=== PATIENT | male | born 1985 | race Caucasian/White ===

== ENCOUNTER 2021-10-14 11:35 | Emergency (ER) | payer BC, OTHER ==
[~2021-10-14] VITALS: Ht 177.8 cm; Wt 152.5 kg
[2021-10-14] MEDS ORDERED: VYVA40CA3 (11:48)
[2021-10-14] MEDS ORDERED: METOPROLOL TART 25 MG TABLET PO ONE (15:40)
[2021-10-14 16:09] VITALS: O2SAT 93
--- NOTE | 2021-10-14 16:33 | REP ---
INDICATION: covid, cough COMPARISON: None. TECHNIQUE: Portable AP view of the chest FINDINGS: Diffuse bilateral opacities consistent with the given history of COVID-19 pulmonary disease. No obvious effusion. No pneumothorax. Cardiac silhouette within normal limits for portable technique. IMPRESSION: Diffuse opacities consistent with COVID-19 pulmonary disease. <Electronically signed by Gautam Wong > 10/14/21 [id number]
[2021-10-14 16:41] VITALS: BP 120/57
[2021-10-14 16:42] VITALS: BP 120/57
--- NOTE | 2021-10-14 16:57 | IPNPDOC ---
Date Seen The patient was seen on 10/14/21. Progress Note SUBJECTIVE: 36-year-old male with morbid obesity BMI 48.2 complaining of fever chills shortness of breath cough loss of taste loss of smell that started Tuesday evening when he felt that something was "wrong", with malaise on Tuesday passing out at home and sleeping 5 to 6 hours patient had a documented fever 103 for which she took some Tylenol and ibuprofen dry cough shortness of breath occurred today patient has had no appetite he did a home Covid test on 10/10/21 which was positive. Patient presents to emergency room for monoclonal antibodies. With ambulation patient was saturating 99% on room air. OBJECTIVE PHYSICAL EXAMINATION: VITAL SIGNS: Please see below. GENERAL: Awake alert oriented x3 no respiratory distress HEENT: Conjunctival injection in the left eye, extract muscles intact no JVD thyromegaly stridor No carotid bruit CARDIOVASCULAR: S1-S2 sinus tachycardia no S3 RESPIRATORY: Clear to auscultation air entry is equal ABDOMINAL: Obese soft nontender nondistended positive bowel sounds EXTREMITIES: No cyanosis clubbing or pitting edema LABORATORY DATA, IMAGING STUDIES, MICROBIOLOGY: Please see below. ASSESSMENT AND PLAN: 36-year-old male with morbid obesity BMI 48.2 presents with cough cold fever chills shortness of breath saturating 99% on room air tested positive on 10/10/21 using a home Covid test. Coronavirus positive -Patient is not hypoxic. He will be scheduled for monoclonal antibodies on 10/15/2021. Patient has signed a consent form. All questions have been answered. Check inflammatory markers and chest x-ray. Continue with droplet and contact isolation. If worsens patient may be admitted for inpatient IV remdesivir Decadron aspirin and Lovenox. Morbid obesity -Complicating care. VS, I&O, 24H, Fishbone Vital Signs/I&O Vital Signs Date Time Temp Pulse Resp B/P (MAP) Pulse Ox O2 Delivery O2 Flow Rate FiO2 10/14/21 16:42 83 120/57 10/14/21 16:41 98.6 20 99 Room Air JOHN PEREZ MD Oct 14, 2021 16:56
[2021-10-14 17:19] LABS: INR 0.99; PROTHROMBIN TIME 13.5 SECONDS (12.7-14.5)
[2021-10-14 17:21] LABS: PARTIAL THROMBOPLASTIN TIME 32.9 SECONDS (25.9-37.0)
[2021-10-14 17:23] LABS: D-DIMER QUANT 1017.92 ng/ml (<500)
[2021-10-14] MEDS ORDERED: ACETAMINOPHEN 500 MG TAB PO ONE (17:35)
[2021-10-14 18:00] LABS: ALBUMIN 3.7 GM/DL (3.2-5.2); BILIRUBIN,DIRECT 0.2 MG/DL (0.0-0.2); BILIRUBIN,TOTAL 0.4 MG/DL (0.2-1.0); C REACTIVE PROTEIN QUANTITATIV 7.96 MG/DL (0.00-0.30); TOTAL PROTEIN 7.4 GM/DL (6.4-8.2)
== END 2021-10-14 17:59 | disposition home or self-care (01) ==
LOC: M ED 11:35
DX: U07.1 COVID-19 (principal); F90.9 Attention-deficit hyperactivity disorder, unspecified type

== ENCOUNTER 2021-10-15 14:22 | Outpatient (CLI) | payer OTHER ==
[~2021-10-15] VITALS: Ht 180.3 cm; Wt 150.0 kg
[~2021-10-15 14:22] MED LIST: CASIRIVIMAB/IMDEVIMAB 1,200 MG in NS 250 ML IV ONE; VYVA40CA3
[2021-10-15 14:35] VITALS: BP 143/67
[2021-10-15] MEDS ORDERED: EPINEPHrine INJ 1 MG/ML 1ML AMP IM PRN (15:00)
[2021-10-15] MEDS ORDERED: ACETAMINOPHEN TAB 650MG DOSE (2X325MG) PO PRN (15:00)
[2021-10-15] MEDS ORDERED: methylPREDNISolone 125MG 2ML VIAL IV ONE (15:00)
[2021-10-15] MEDS ORDERED: diphenhydrAMINE 50MG/ML VIAL (J1200) IV PRN (15:00)
[2021-10-15] MEDS ORDERED: diphenhydrAMINE 50MG/ML VIAL (J1200) IV ONE (15:00)
[2021-10-15] MEDS ORDERED: ACETAMINOPHEN TAB 650MG DOSE (2X325MG) PO ONE (15:00)
[2021-10-15] MEDS ORDERED: ALBUTEROL 90 MCG/ACT 8GM HFA INHALER INH PRN (15:00)
[2021-10-15] MEDS ORDERED: NS 1,000 ML IV SCH (15:00)
[2021-10-15] MEDS ORDERED: CASIRIVIMAB/IMDEVIMAB 1,200 MG in NS 250 ML IV ONE (15:00)
[2021-10-15] MEDS ORDERED: methylPREDNISolone 125MG 2ML VIAL IV PRN (15:00)
[2021-10-15 15:05] VITALS: BP 143/67
[2021-10-15 15:35] VITALS: BP 111/63
[2021-10-15 16:12] VITALS: BP 109/56
[2021-10-15 17:18] VITALS: BP 112/66
[2021-10-16] MEDS ORDERED: methylPREDNISolone 40MG 1ML VIAL IV ONE (06:00)
== END 2021-10-15 17:25 | disposition home or self-care (01) ==
LOC: M OPCLI4 14:22
PROVIDERS: ATTEND General Practice
DX: U07.1 COVID-19 (principal)
CPT/HCPCS: 96375; J1200; J2930; M0243

== ENCOUNTER → 2021-10-21 | Outpatient (CLI) | payer OTHER ==
[~2021-10-21] MED LIST changes: -CASIRIVIMAB/IMDEVIMAB 1,200 MG in NS 250 ML IV ONE; +ISOVUE-370 76% 100ML VIAL ONE
--- NOTE | 2021-10-21 09:14 | REP ---
INDICATION: ELEVATED D DIMER,SOB COMPARISON: None. TECHNIQUE: CT angiography chest after the intravenous administration of 75 cc Isovue 370. FINDINGS: There is suboptimal visualization of the pulmonary arterial vasculature. This is secondary to injection timing. Small an even moderate-sized pulmonary emboli could be obscured. No 1st order pulmonary arterial filling defects are identified. There is no gross abnormality seen involving the thoracic aorta. There is no evidence of mediastinal or hilar adenopathy. There are no pleural or pericardial effusions. The imaged upper abdomen and imaged osseous structures are within normal limits. Evaluation of the lung rodríguez shows scattered patchy airspace opacities. IMPRESSION: 1. Suboptimal visualization of the pulmonary arteries, as described above with no evidence of a gross 1st order pulmonary embolus. Consider repeat exam and correlate clinically. 2. Lung field opacities consistent with the patient's known diagnosis of COVID-19. <Electronically signed by Austin Heath > 10/21/21 0996
== END ==
LOC: M PLAIMG 08:24
PROVIDERS: ATTEND Physician Assistant
DX: R79.89 Other specified abnormal findings of blood chemistry (principal); R91.8 Other nonspecific abnormal finding of lung field; U07.1 COVID-19; J12.82 Pneumonia due to coronavirus disease 2019
CPT/HCPCS: 71275; Q9967

== ENCOUNTER → 2022-05-17 | Outpatient (REF) | payer OTHER ==
[~2022-05-17] MED LIST changes: -ISOVUE-370 76% 100ML VIAL ONE
[2022-05-17 16:09] LABS: HEMATOCRIT 44.7 % (42.0-52.0); HEMOGLOBIN 15.1 g/dl (13.5-17.5); MEAN CORPUSCULAR HEMOGLOBIN 30.9 pg (27.0-33.0); MEAN CORPUSCULAR HGB CONC 33.8 g/dl (32.0-36.5); MEAN CORPUSCULAR VOLUME 91.6 fl (80.0-96.0); PLATELET COUNT, AUTOMATED 211 10^3/uL (150-450); RED BLOOD COUNT 4.88 10^6/uL (4.30-6.10); WHITE BLOOD COUNT 6.2 10^3/uL (4.0-10.0)
[2022-05-17 16:17] LABS: ALT/SGPT 118 U/L (12-78); BILIRUBIN,TOTAL 0.5 MG/DL (0.2-1.0); BLOOD UREA NITROGEN 16 MG/DL (7-18); CALCIUM LEVEL 9.1 MG/DL (8.5-10.1); CARBON DIOXIDE LEVEL 27 MEQ/L (21-32); CHLORIDE LEVEL 107 MEQ/L (98-107); CHOLESTEROL LEVEL 225 MG/DL (<200); CHOLESTEROL RISK RATIO 4.166 (<5); CREATININE FOR GFR 0.76 MG/DL (0.70-1.30); FREE T4 0.81 NG/DL (0.76-1.46); GLOMERULAR FILTRATION RATE > 60.0 (>60); GLUCOSE, FASTING 106 MG/DL (70-100); HDL CHOLESTEROL 54 MG/DL (>40); LDL CHOLESTEROL 149 MG/DL (<100); NON-HDL-C 171 MG/DL; POTASSIUM SERUM 4.5 MEQ/L (3.5-5.1); SODIUM LEVEL 139 MEQ/L (136-145); TOTAL PROTEIN 7.5 GM/DL (6.4-8.2); TRIGLYCERIDES LEVEL 111 MG/DL (<150)
[2022-05-17 17:11] LABS: HEMOGLOBIN A1c 5.5 %
== END ==
LOC: M SFHCCLAY 11:27
PROVIDERS: ATTEND Nurse Practitioner Family
DX: Z13.1 Encounter for screening for diabetes mellitus (principal); Z13.220 Encounter for screening for lipoid disorders; Z00.00 Encounter for general adult medical examination without abnormal findings

== ENCOUNTER → 2023-06-22 | Outpatient (CLI) | payer OTHER ==
[2023-06-22 19:08] LABS: ALBUMIN 4.3 G/DL (3.2-5.2); ALKALINE PHOSPHATASE 58 U/L (46-116); ALT/SGPT 48 U/L (7.0-40); AST/SGOT 15 U/L (<34); BILIRUBIN,TOTAL 0.6 MG/DL (0.3-1.2); BLOOD UREA NITROGEN 16 MG/DL (9-23); CALCIUM LEVEL 9.3 MG/DL (8.5-10.1); CARBON DIOXIDE LEVEL 28 MMOL/L (20-31); CHLORIDE LEVEL 104 MMOL/L (98-107); CREATININE FOR GFR 0.79 MG/DL (0.70-1.30); GLOMERULAR FILTRATION RATE > 60.0 (>60); GLUCOSE, FASTING 90 MG/DL (60-100); POTASSIUM SERUM 4.3 MMOL/L (3.5-5.1); SODIUM LEVEL 141 MMOL/L (136-145); TOTAL PROTEIN 7.2 G/DL (5.7-8.2)
== END ==
LOC: M PLALAB 15:01
PROVIDERS: ATTEND Nurse Practitioner Family
DX: R74.8 Abnormal levels of other serum enzymes (principal)